=== PATIENT | male | born 1945 | race Caucasian/White ===

== ENCOUNTER 2018-09-02 11:01 | Day surgery (SDC) | payer MEDICARE, BC ==
[2018-09-01 13:34] VITALS: BMI 33.0
[2018-09-02] MEDS ORDERED: Vancomycin HCl 1.5 GM in Sodium Chloride 0.9% 250 ML 300 ML IVPB SCH (11:30)
[2018-09-02] MEDS ORDERED: Fentanyl 100 MCG/2 ML VIAL ONE (13:01)
[2018-09-02] MEDS ORDERED: Midazolam HCl 2 mg/2 ml Vial ONE ×2 (13:02→14:13)
[2018-09-02] MEDS ORDERED: Lidocaine 2% PF 5 ML VIAL ONE (13:07)
[2018-09-02] MEDS ORDERED: Bupivacaine/Epinephrine 0.25% 30 ML VIAL ONE (13:07)
[2018-09-02] MEDS ORDERED: Propofol 500 MG/50 ML VIAL ONE (13:14)
[2018-09-02] MEDS ORDERED: PHENYLEPHRINE-NS 100 MCG/ML 10 ML SYRINGE ONE ×2 (14:12→15:20)
[2018-09-02] MEDS ORDERED: PROPOFOL 20 ML ONE (14:20)
[2018-09-02] MEDS ORDERED: PROPOFOL 200 MG/20 ML VIAL ONE (15:20)
--- NOTE | 2018-09-02 15:56 | RAD ---
CHEST ONE VIEW: 09/02/18 HISTORY: Status post Mediport catheter placement. COMPARISON: None. FINDINGS: Slight elongation of the aorta. Normal cardiac silhouette. The pulmonary vessels and hilum are normal . Costophrenic angles are clear. No consolidation or mass. There is a left sided Mediport catheter wi th distal tip in the expected region of the superior vena cava. No pneumothorax. IMPRESSION: Left sided Mediport catheter without evidence of pneumothorax. POS: [facility]
--- NOTE | 2018-09-03 14:00 | OP ---
DATE OF PROCEDURE: 09/02/2018 PREOPERATIVE DIAGNOSIS: Lymphoma. POSTOPERATIVE DIAGNOSIS: Lymphoma. PROCEDURE: Tunnelled central line with subcutaneous port (MediPort CT injectable), left internal jugular vein. ANESTHESIA: TIVA, local. ESTIMATED BLOOD LOSS: Minimal. COMPLICATION: None. FINDINGS: Tip of the catheter at the atriocaval junction. DESCRIPTION OF PROCEDURE: The patient was taken to the operating room and laid supine on the operating room table. After sedation was obtained, bilateral neck and chest were shaved, prepped, and draped in a sterile fashion. Local anesthetic was infiltrated over the left internal jugular vein. Left internal jugular vein was cannulated using a 22-gauge finder needle followed by a Seldinger needle. Wire was passed under fluoro guidance into superior vena cava. A 3-cm incision was made in the left upper chest and a subcutaneous pocket was made below the lower incision. Tubing for the MediPort tunneled from the inferior to the superior incision and suture sheath was placed over the wire into the superior vena cava under fluoro guidance. The dilator and wire were removed. The end of the catheter was sewed into the sheath. The sheath was peeled away. The end of the catheters was at the atriocaval junction. MediPort tubing cut to fit the MediPort at the lower incision. It was connected to the MediPort and sewn to the chest wall using Prolene. The wound was irrigated. Local anesthetic was applied. The MediPort was able to pull blood and it was flushed with a heparin flush. The wounds were closed using 3-0 Vicryl, 4-0 Monocryl, and Dermabond. The patient was sent to Recovery in stable condition. All instrument counts, needle counts, and lap counts were correct. Job ID: [id number]
--- NOTE | 2018-09-04 20:49 | EKG ---
Test Reason : PREOP Blood Pressure : / mmHG Vent. Rate : 062 BPM Atrial Rate : 062 BPM P-R Int : 200 ms QRS Dur : 088 ms QT Int : 394 ms P-R-T Axes : 049 -13 034 degrees QTc Int : 399 ms Normal sinus rhythm Low voltage QRS Borderline ECG When compared with ECG of 01-FEB-1997 12:17, No significant change was found Confirmed by Herminia MUÑOZ ([id number]) on 09/04/2018 8:48:50 PM Referred By: LEONOR Confirmed By:Herminia MUÑOZ
== END 2018-09-02 16:56 | disposition home or self-care (01) ==
LOC: SDC 11:01
PROVIDERS: ATTEND Surgery
PROC: 02HV33Z Insertion of Infusion Device into Superior Vena Cava, Percutaneous Approach (ICD-10-PCS; principal; 2018-09-02)
DX: C82.90 Follicular lymphoma, unspecified, unspecified site (principal); M19.90 Unspecified osteoarthritis, unspecified site; I10 Essential (primary) hypertension; Z79.899 Other long term (current) drug therapy
CPT/HCPCS: 36561; 71045; 93005; C1788; 93010; J1642; J2001; J2250; J2704; J3010; J3370; J7050

== ENCOUNTER 2021-09-03 09:48 | Outpatient (CLI) | payer MEDICARE, BC ==
[2021-09-03 11:19] LABS: #Eosinphils 0.1 10x3/uL (0.0-0.5); #Monocytes 0.6 10x3/uL (0.0-1.1); #Neutrophils 3.4 10x3/uL (1.5-8.4); %Basophils 0.6 % (0.0-2.0); %Eosinophils 2.8 % (0.0-6.0); %Lymphocytes 18.4 % (18.0-47.0); %Monocytes 11.1 % (0.0-10.0); %Neutrophils 66.7 % (40.0-75.0); Hemoglobin 13.5 g/dL (13.5-17.5); Mean Corpuscular HGB CONC 33.3 g/dL (32.0-36.0); Mean Corpuscular Hemoglobin 31.9 pg (27.0-33.0); Platelet Count 141 10x3/uL (150-450); RBC Distribution Width 13.1 % (11.5-14.5); Red Blood Cell (RBC) Count 4.23 10x6/uL (4.32-5.72); White Blood Cell (WBC) Count 5.1 10x3/uL (3.5-10.5)
[2021-09-03 12:02] LABS: Anion Gap 12 mmol/L (10-20); BUN (Urea Nitrogen) 16 mg/dL (8.4-25.7); Calc. Creatinine Clearance 0 mL/min (70-130); Calcium 8.9 mg/dL (7.8-10.44); Carbon Dioxide 27 mmol/L (23-31); Chloride 106 mmol/L (98-107); Glucose 85 mg/dL (83-110); Sodium 141 mmol/L (136-145)
[2021-09-04 08:56] LABS: SARS-CoV-2 PCR by NAA Not Detected (NotDetected)
== END 2021-09-03 09:49 | disposition home or self-care (01) ==
LOC: LABBT 09:48
PROVIDERS: ATTEND Surgery
DX: Z01.818 Encounter for other preprocedural examination (principal); K42.9 Umbilical hernia without obstruction or gangrene; Z20.822 Contact with and (suspected) exposure to COVID-19
CPT/HCPCS: 80048; 85025; 93005; U0003; U0005; 93010

== ENCOUNTER 2021-09-06 08:20 | Day surgery (SDC) | payer MEDICARE, BC ==
[2021-08-29 15:06] VITALS: BMI 31.5
[2021-09-06] MEDS ORDERED: EPINEPHrine 1 MG/ML AMP ONE (10:38)
[2021-09-06] MEDS ORDERED: Bupivacaine PF 0.5% 30 ML VIAL ONE (10:38)
[2021-09-06] MEDS ORDERED: Fentanyl 100 MCG/2 ML VIAL ONE (10:41)
[2021-09-06] MEDS ORDERED: Bupivacaine 0.25% HCL 30 ML VIAL ONE (10:48)
[2021-09-06] MEDS ORDERED: ceFAZolin 2 GM/Dextrose 50 ML IVPB ONE (11:00)
[2021-09-06] MEDS ORDERED: Lidocaine 1% PF 5 ML VIAL ONE (11:16)
[2021-09-06] MEDS ORDERED: Ondansetron PF 4 MG/2 ML Vial ONE (11:16)
[2021-09-06] MEDS ORDERED: PROPOFOL 200 MG/20 ML VIAL ONE (11:16)
[2021-09-06] MEDS ORDERED: Sodium Chloride 0.9% 10 ML ONE (11:18)
[2021-09-06] MEDS ORDERED: HYDROcodone/Acetaminophen 5/325 mg Tablet ONE (13:31)
== END 2021-09-06 13:44 | disposition home or self-care (01) ==
LOC: SDC 08:20
PROVIDERS: ATTEND Surgery
PROC: 0WUF0JZ Supplement Abdominal Wall with Synthetic Substitute, Open Approach (ICD-10-PCS; principal; 2021-09-06)
DX: K42.9 Umbilical hernia without obstruction or gangrene (principal); I10 Essential (primary) hypertension; M19.011 Primary osteoarthritis, right shoulder; M19.012 Primary osteoarthritis, left shoulder; Z79.2 Long term (current) use of antibiotics; Z79.899 Other long term (current) drug therapy
CPT/HCPCS: C1889; J0171; J0690; J1642; J2405; J2704; J3010; S0020

== ENCOUNTER 2022-09-09 12:13 | Outpatient (CLI) | payer MEDICARE, BC | END 2022-09-09 12:14 | disposition home or self-care (01) | LOC: TBSIIMAG 12:13 | PROVIDERS: ATTEND Anesthesiology Pain Medicine | DX: M47.24 Other spondylosis with radiculopathy, thoracic region (principal); M51.14 Intervertebral disc disorders with radiculopathy, thoracic region | CPT/HCPCS: 72146 ==

== ENCOUNTER 2023-06-19 11:06 | Outpatient (CLI) | payer MEDICARE, BC ==
[2023-06-19 13:15] LABS: #Eosinphils 0.3 10x3/uL (0.0-0.5); #Monocytes 0.4 10x3/uL (0.0-1.1); #Neutrophils 2.9 10x3/uL (1.5-8.4); %Basophils 0.7 % (0.0-2.0); %Eosinophils 5.6 % (0.0-6.0); %Lymphocytes 21.5 % (18.0-47.0); %Monocytes 8.3 % (0.0-10.0); %Neutrophils 63.7 % (40.0-75.0); Hematocrit 35.6 % (38.8-50.0); Hemoglobin 11.6 g/dL (13.5-17.5); Mean Corpuscular HGB CONC 32.6 g/dL (32.0-36.0); Mean Corpuscular Hemoglobin 30.6 pg (27.0-33.0); Mean Corpuscular Volume 93.9 fl (81.2-95.1); Mean Platelet Volume 9.3 fl (7.4-10.4); Platelet Count 189 10x3/uL (150-450); RBC Distribution Width 14.1 % (11.5-14.5); Red Blood Cell (RBC) Count 3.79 10x6/uL (4.32-5.72); White Blood Cell (WBC) Count 4.5 10x3/uL (3.5-10.5)
[2023-06-19 13:34] LABS: Anion Gap 14 mmol/L (10-20); BUN (Urea Nitrogen) 13 mg/dL (8.4-25.7); Calc. Creatinine Clearance 0 mL/min (70-130); Calcium 8.8 mg/dL (7.8-10.44); Carbon Dioxide 26 mmol/L (23-31); Chloride 107 mmol/L (98-107); Estimated GFR 60; Glucose 94 mg/dL (83-110); Sodium 143 mmol/L (136-145)
[2023-06-19 16:51] LABS: Hemoglobin A1c 5.3 % (4.0-6.0)
== END 2023-06-19 11:07 | disposition home or self-care (01) ==
LOC: LABBT 11:06
PROVIDERS: ATTEND Surgery
DX: Z01.818 Encounter for other preprocedural examination (principal); C18.9 Malignant neoplasm of colon, unspecified
CPT/HCPCS: 80048; 83036; 85025; 93005; 93010

== ENCOUNTER 2023-06-19 11:30 | Inpatient (IN) | payer MEDICARE, BC ==
[2023-06-19 11:58] VITALS: BMI 30.1
[2023-06-25] MEDS ORDERED: Bupivacaine 0.25% HCL 30 ML VIAL ONE (08:55)
[2023-06-25] MEDS ORDERED: EPINEPHrine 1 MG/ML VIAL ONE (08:55)
[2023-06-25] MEDS ORDERED: fentaNYL 50 mcg/mL 1 mL Vial ONE ×2 (08:55→14:51)
[2023-06-25] MEDS ORDERED: Midazolam HCl 2 mg/2 ml Vial ONE (08:55)
[2023-06-25] MEDS ORDERED: Lidocaine 1% (PF) 30 ML VIAL ONE (08:56)
[2023-06-25] MEDS ORDERED: Dexmedetomidine 200 MCG/2 ML VIAL ONE (08:57)
[2023-06-25] MEDS ORDERED: fentaNYL PF 100 MCG/2 ML SYRINGE ONE (10:58)
[2023-06-25] MEDS ORDERED: SUGAMMADEX SODIUM 200 MG/2 ML VIAL ONE (10:58)
[2023-06-25] MEDS ORDERED: Sodium Chloride 0.9% 100 ML ONE (11:01)
[2023-06-25] MEDS ORDERED: cefOXitin 2 GM VIAL ONE (11:01)
[2023-06-25] MEDS ORDERED: PROPOFOL 200 MG/20 ML VIAL ONE (11:14)
[2023-06-25] MEDS ORDERED: Ondansetron PF 4 MG/2 ML Vial ONE (11:14)
[2023-06-25] MEDS ORDERED: Dexamethasone 20 MG/5 ML VIAL ONE (11:14)
[2023-06-25] MEDS ORDERED: Rocuronium Bromide 10 MG/ML (10ML VIAL) ONE (11:14)
[2023-06-25] MEDS ORDERED: ePHEDrine Sulfate 50 MG/10 ML VIAL ONE (11:14)
[2023-06-25] MEDS ORDERED: Lidocaine 1% PF 5 ML VIAL ONE (11:14)
[2023-06-25] MEDS ORDERED: PHENYLEPHRINE-NS 100 MCG/ML 10 ML SYRINGE ONE (11:14)
[2023-06-25] MEDS ORDERED: Ondansetron HCl/PF 4 MG/2 ML Vial IVP PRN (14:02)
[2023-06-25] MEDS ORDERED: Promethazine HCl 25 MG/ML VIAL IM PRN ×2 (14:02→15:57)
[2023-06-25] MEDS ORDERED: Ondansetron PF 4 MG/2 ML Vial IVP PRN (15:57)
[2023-06-25] MEDS ORDERED: hydrALAZINE 20 MG/ML VIAL SLOW IVP PRN (15:57)
[2023-06-25] MEDS ORDERED: Ipratropium/Albuterol 3 ML NEB NEB PRN (15:57)
[2023-06-25] MEDS: D5 1/2 NS w/20 mEq KCL 1,000 ML IV SCH (16:27)
[2023-06-25] MEDS: HYDROcodone/Acetaminophen 7.5/325 mg Tablet PO PRN (16:44)
[2023-06-25] MEDS: Famotidine/PF 20 mg/2ml Vial SLOW IVP SCH (19:51)
[2023-06-25] MEDS: Fentanyl 100 MCG/2 ML VIAL SLOW IVP PRN (19:52)
[2023-06-25] MEDS: cefOXitin 2 GM in Sodium Chloride 0.9% 100 ML IVPB SCH (19:52)
[2023-06-25] MEDS: Amlodipine 5 MG TAB PO SCH (19:52)
[2023-06-25] MEDS: Famotidine 20 MG TAB PO SCH (19:53)
[2023-06-26] MEDS: Fentanyl 100 MCG/2 ML VIAL SLOW IVP PRN (00:51)
[2023-06-26] MEDS: D5 1/2 NS w/20 mEq KCL 1,000 ML IV SCH ×3 (00:54→16:24)
[2023-06-26] MEDS: cefOXitin 2 GM in Sodium Chloride 0.9% 100 ML IVPB SCH (04:30)
[2023-06-26] MEDS: HYDROcodone/Acetaminophen 7.5/325 mg Tablet PO PRN (04:31)
[2023-06-26 05:59] LABS: Anion Gap 10 mmol/L (10-20); BUN (Urea Nitrogen) 10 mg/dL (8.4-25.7); Calc. Creatinine Clearance 53 mL/min (70-130); Calcium 9.1 mg/dL (7.8-10.44); Carbon Dioxide 25 mmol/L (23-31); Chloride 107 mmol/L (98-107); Estimated GFR 47; Glucose 130 mg/dL (83-110); Potassium 3.8 mmol/L (3.5-5.1); Sodium 138 mmol/L (136-145)
[2023-06-26 06:20] LABS: #Monocytes 0.7 thou/uL (0.11-0.59); #Neutrophils 7.3 thou/uL (1.40-6.50); %Lymphocytes 5.6 % (21.0-51.0); %Monocytes 7.8 % (0.0-10.0); %Neutrophils 86.2 % (42.0-75.0); Hematocrit 34.7 % (42.0-52.0); Hemoglobin 11.6 g/dL (14.0-18.0); Mean Corpuscular HGB CONC 33.4 g/dL (32.0-36.0); Mean Corpuscular Hemoglobin 31.5 pg (27.0-31.0); Mean Corpuscular Volume 94.3 fl (78.0-98.0); Mean Platelet Volume 9.3 fL (7.4-10.4); Platelet Count 176 10x3/uL (130-400); Red Blood Cell (RBC) Count 3.68 mill/uL (4.70-6.10); White Blood Cell (WBC) Count 8.5 10x3/uL (4.8-10.8)
[2023-06-26] MEDS: Ondansetron ODT 4 MG TAB SL PRN ×2 (06:50→16:23)
[2023-06-26] MEDS: Famotidine 20 MG TAB PO SCH ×2 (10:06→20:57)
[2023-06-26] MEDS: Famotidine/PF 20 mg/2ml Vial SLOW IVP SCH ×2 (10:07→20:57)
[2023-06-26] MEDS: Amlodipine 5 MG TAB PO SCH (20:56)
[2023-06-27] MEDS: D5 1/2 NS w/20 mEq KCL 1,000 ML IV SCH ×2 (00:10→06:37)
[2023-06-27] MEDS: HYDROcodone/Acetaminophen 7.5/325 mg Tablet PO PRN (00:18)
[2023-06-27] MEDS: Famotidine 20 MG TAB PO SCH (09:59)
[2023-06-27] MEDS: Famotidine/PF 20 mg/2ml Vial SLOW IVP SCH (09:59)
[2023-06-27 13:13] VITALS: BP 151/83; TEMP 98
== END 2023-06-27 13:24 | disposition home or self-care (01) | DRG 330 ==
LOC: SURG A 06-25 07:12 → SURG B 06-25 15:55
PROVIDERS: ADMIT Surgery; ATTEND Surgery
PROC: 0DTK4ZZ Resection of Ascending Colon, Percutaneous Endoscopic Approach (ICD-10-PCS; principal; 2023-06-25)
PROC: 0DB84ZZ Excision of Small Intestine, Percutaneous Endoscopic Approach (ICD-10-PCS; 2023-06-25)
PROC: 8E0W4CZ Robotic Assisted Procedure of Trunk Region, Percutaneous Endoscopic Approach (ICD-10-PCS; 2023-06-25)
DX: C18.2 Malignant neoplasm of ascending colon (principal); C77.9 Secondary and unspecified malignant neoplasm of lymph node, unspecified; I96 Gangrene, not elsewhere classified; I10 Essential (primary) hypertension; M19.90 Unspecified osteoarthritis, unspecified site; Z98.890 Other specified postprocedural states
CPT/HCPCS: 36415; 36416; 80048; 85025; 88309; A4314; J0171; J0694; J1100; J1650; J2001; J2250; J2405; J2704; J3010; J3480; J3490; Q0162; S0020; S0028

== ENCOUNTER 2024-06-13 00:59 | Inpatient (IN) | payer MEDICARE, BC ==
[2024-06-13] MEDS ORDERED: Ondansetron PF 4 MG/2 ML Vial ONE (01:30)
[2024-06-13 02:02] LABS: #Basophils Less than 0.03 10x3/uL (0.0-0.2); %Basophils 0.2 % (0.0-1.0); %Eosinophils 1.6 % (0.0-10.0); %Lymphocytes 1.8 % (21.0-51.0); %Monocytes 6.7 % (0.0-10.0); %Neutrophils 89.2 % (42.0-75.0); Hematocrit 34.7 % (42.0-52.0); Hemoglobin 11.3 g/dL (14.0-18.0); Mean Corpuscular HGB CONC 32.6 g/dL (32.0-36.0); Mean Corpuscular Hemoglobin 31.6 pg (27.0-31.0); Mean Corpuscular Volume 96.9 fL (78.0-98.0); Mean Platelet Volume 10.2 fL (7.4-10.4); Platelet Count 80 10x3/uL (130-400); RBC Distribution Width 13.7 % (11.5-14.5); Red Blood Cell (RBC) Count 3.58 mill/uL (4.70-6.10)
[2024-06-13 02:19] LABS: ALT (SGPT) 148 U/L (8-55); AST (SGOT) 125 U/L (5-34); Albumin 2.8 g/dL (3.4-4.8); Alkaline Phosphatase 419 U/L (40-110); Anion Gap 17 mmol/L (10-20); BUN (Urea Nitrogen) 27 mg/dL (8.4-25.7); Bilirubin, Total 2.6 mg/dL (0.2-1.2); Calc. Creatinine Clearance 0 mL/min (70-130); Calcium 9.3 mg/dL (7.8-10.44); Carbon Dioxide 18 mmol/L (23-31); Chloride 108 mmol/L (98-107); Estimated GFR 67; Globulin 3.7 g/dL (2.4-3.5); Glucose 118 mg/dL (83-110); Lipase 263 U/L (8-78); Potassium 3.6 mmol/L (3.5-5.1); Protein, Total 6.5 g/dL (5.8-8.1); Sodium 139 mmol/L (136-145)
[2024-06-13] MEDS ORDERED: HYDROmorphone 0.5 MG/0.5 ML SYRINGE ONE ×2 (02:22→08:35)
[2024-06-13 02:24] LABS: Troponin I Less than 0.010 ng/mL (< 0.028)
[2024-06-13] MEDS ORDERED: Iopamidol 370 76% 100 ML VIAL ONE (09:00)
[2024-06-13] MEDS ORDERED: Acetaminophen 325 MG TAB PO PRN (10:18)
[2024-06-13] MEDS: Sodium Chloride 0.9% 1,000 ML IV SCH (12:36)
[2024-06-13] MEDS: Morphine 4 MG/ML VIAL SLOW IVP PRN (12:49)
[2024-06-13 13:33] VITALS: BMI 20.4
[2024-06-13] MEDS: HYDROcodone/Acetaminophen 7.5/325 mg Tablet PO PRN (20:35)
[2024-06-13] MEDS: Famotidine 20 MG TAB PO SCH (20:35)
[2024-06-13] MEDS: Amlodipine 5 MG TAB PO SCH (20:35)
[2024-06-14 05:09] LABS: ALT (SGPT) 193 U/L (8-55); AST (SGOT) 170 U/L (5-34); Albumin 2.7 g/dL (3.4-4.8); Alkaline Phosphatase 444 U/L (40-110); Anion Gap 15 mmol/L (10-20); BUN (Urea Nitrogen) 25 mg/dL (8.4-25.7); Bilirubin, Total 2.2 mg/dL (0.2-1.2); Calc. Creatinine Clearance 54 mL/min (70-130); Calcium 9.2 mg/dL (7.8-10.44); Carbon Dioxide 18 mmol/L (23-31); Chloride 110 mmol/L (98-107); Estimated GFR 77; Globulin 3.4 g/dL (2.4-3.5); Glucose 107 mg/dL (83-110); Potassium 4.2 mmol/L (3.5-5.1); Protein, Total 6.1 g/dL (5.8-8.1); Sodium 139 mmol/L (136-145)
[2024-06-14] MEDS: Polyethylene Glycol 3350 17 GM Packet PO SCH (09:13)
[2024-06-14] MEDS: Enoxaparin 40 MG (0.4 mL) SYRINGE SC SCH (09:15)
[2024-06-14] MEDS: FLU (Fluad Triv) TS24-25 (65UP)/MF59C/PF 45 MCG/0.5 ML Syringe IM ONE (10:48)
[2024-06-14 10:50] VITALS: BMI 20.4
[2024-06-14 11:24] LABS: Lactic Acid 1.35 mmol/L (0.5-2.2)
[2024-06-14] MEDS: oxyCODONE 5 MG TAB PO PRN ×2 (14:54→20:17)
[2024-06-14] MEDS: Acetaminophen 500 MG TAB PO SCH (14:54)
[2024-06-14] MEDS: Megestrol Acetate 800 MG/20 ML UDCUP PO SCH (14:54)
[2024-06-14] MEDS: Pancrelipase DR 12,000 1 CAP PO SCH (18:06)
[2024-06-14] MEDS: Morphine 2 MG/ML VIAL SLOW IVP PRN (18:06)
[2024-06-14] MEDS: Senokot S 8.6-50 MG TAB PO SCH (20:18)
[2024-06-14] MEDS ORDERED: Senokot S 8.6-50 MG TAB PO SCH (21:00)
[2024-06-15 04:31] LABS: #Basophils 0.03 10x3/uL (0.0-0.2); %Basophils 0.9 % (0.0-1.0); %Eosinophils 3.5 % (0.0-10.0); %Lymphocytes 3.5 % (21.0-51.0); %Monocytes 7.3 % (0.0-10.0); %Neutrophils 84.5 % (42.0-75.0); Hematocrit 32.8 % (42.0-52.0); Hemoglobin 10.5 g/dL (14.0-18.0); Mean Corpuscular Hemoglobin 31.9 pg (27.0-31.0); Mean Corpuscular Volume 99.7 fL (78.0-98.0); Mean Platelet Volume 9.7 fL (7.4-10.4); Platelet Count 63 10x3/uL (130-400); RBC Distribution Width 13.9 % (11.5-14.5); Red Blood Cell (RBC) Count 3.29 mill/uL (4.70-6.10)
[2024-06-15 04:38] LABS: Anion Gap 15 mmol/L (10-20); BUN (Urea Nitrogen) 23 mg/dL (8.4-25.7); Calc. Creatinine Clearance 52 mL/min (70-130); Calcium 8.8 mg/dL (7.8-10.44); Carbon Dioxide 16 mmol/L (23-31); Chloride 112 mmol/L (98-107); Estimated GFR 74; Glucose 101 mg/dL (83-110); Lipase 256 U/L (8-78); Potassium 4.1 mmol/L (3.5-5.1); Sodium 139 mmol/L (136-145)
[2024-06-15 04:39] LABS: ALT (SGPT) 191 U/L (8-55); AST (SGOT) 154 U/L (5-34); Albumin 2.6 g/dL (3.4-4.8); Alkaline Phosphatase 440 U/L (40-110); Bilirubin, Direct 1.5 mg/dL (0.1-0.3); Bilirubin, Total 2.4 mg/dL (0.2-1.2); Protein, Total 5.7 g/dL (5.8-8.1)
[2024-06-15] MEDS: Ondansetron PF 4 MG/2 ML Vial IVP PRN (05:28)
[2024-06-15] MEDS: Megestrol Acetate 800 MG/20 ML UDCUP PO SCH (09:50)
[2024-06-15] MEDS ORDERED: Lorazepam 2 MG/ML VIAL SLOW IVP SCH (18:15)
[2024-06-15] MEDS: oxyCODONE 5 MG TAB PO SCH (18:55)
[2024-06-16 04:33] LABS: #Basophils Less than 0.03 10x3/uL (0.0-0.2); %Basophils 0.5 % (0.0-1.0); %Eosinophils 1.9 % (0.0-10.0); %Lymphocytes 1.9 % (21.0-51.0); %Monocytes 5.8 % (0.0-10.0); %Neutrophils 89.7 % (42.0-75.0); Hematocrit 30.4 % (42.0-52.0); Mean Corpuscular HGB CONC 32.9 g/dL (32.0-36.0); Mean Corpuscular Hemoglobin 31.6 pg (27.0-31.0); Mean Corpuscular Volume 96.2 fL (78.0-98.0); Mean Platelet Volume 10.3 fL (7.4-10.4); Platelet Count 66 10x3/uL (130-400); RBC Distribution Width 13.7 % (11.5-14.5); Red Blood Cell (RBC) Count 3.16 mill/uL (4.70-6.10)
[2024-06-16 04:45] LABS: Anion Gap 15 mmol/L (10-20); BUN (Urea Nitrogen) 22 mg/dL (8.4-25.7); Calc. Creatinine Clearance 61 mL/min (70-130); Calcium 8.7 mg/dL (7.8-10.44); Carbon Dioxide 19 mmol/L (23-31); Chloride 109 mmol/L (98-107); Estimated GFR 88; Glucose 102 mg/dL (83-110); Potassium 3.4 mmol/L (3.5-5.1); Sodium 140 mmol/L (136-145)
[2024-06-16 04:54] LABS: ALT (SGPT) 167 U/L (8-55); AST (SGOT) 125 U/L (5-34); Albumin 2.4 g/dL (3.4-4.8); Alkaline Phosphatase 426 U/L (40-110); Bilirubin, Direct 1.6 mg/dL (0.1-0.3); Bilirubin, Total 2.3 mg/dL (0.2-1.2); Protein, Total 5.5 g/dL (5.8-8.1)
[2024-06-17 05:00] LABS: #Basophils Less than 0.03 10x3/uL (0.0-0.2); %Basophils 0.5 % (0.0-1.0); %Eosinophils 1.6 % (0.0-10.0); %Lymphocytes 2.3 % (21.0-51.0); %Monocytes 5.5 % (0.0-10.0); %Neutrophils 89.8 % (42.0-75.0); Hematocrit 29.8 % (42.0-52.0); Hemoglobin 10.1 g/dL (14.0-18.0); Mean Corpuscular HGB CONC 33.9 g/dL (32.0-36.0); Mean Corpuscular Hemoglobin 32.2 pg (27.0-31.0); Mean Corpuscular Volume 94.9 fL (78.0-98.0); Mean Platelet Volume 9.9 fL (7.4-10.4); Platelet Count 72 10x3/uL (130-400); RBC Distribution Width 14.2 % (11.5-14.5); Red Blood Cell (RBC) Count 3.14 mill/uL (4.70-6.10)
[2024-06-17 05:12] LABS: Anion Gap 14 mmol/L (10-20); BUN (Urea Nitrogen) 18 mg/dL (8.4-25.7); Calc. Creatinine Clearance 61 mL/min (70-130); Calcium 8.7 mg/dL (7.8-10.44); Carbon Dioxide 18 mmol/L (23-31); Chloride 112 mmol/L (98-107); Estimated GFR 88; Glucose 98 mg/dL (83-110); Potassium 3.4 mmol/L (3.5-5.1); Sodium 141 mmol/L (136-145)
[2024-06-17 05:20] LABS: ALT (SGPT) 165 U/L (8-55); AST (SGOT) 129 U/L (5-34); Albumin 2.5 g/dL (3.4-4.8); Alkaline Phosphatase 453 U/L (40-110); Bilirubin, Direct 2.1 mg/dL (0.1-0.3); Bilirubin, Total 2.8 mg/dL (0.2-1.2); Protein, Total 5.6 g/dL (5.8-8.1)
[2024-06-17 05:36] LABS: T4 6.92 ug/dL (4.87-11.72); Thyroid Stimulating Hormone 0.6566 uIU/mL (0.35-4.94)
[2024-06-18 05:24] LABS: #Basophils Less than 0.03 10x3/uL (0.0-0.2); %Basophils 0.3 % (0.0-1.0); %Eosinophils 1.8 % (0.0-10.0); %Lymphocytes 2.1 % (21.0-51.0); %Monocytes 5.6 % (0.0-10.0); %Neutrophils 89.9 % (42.0-75.0); Hematocrit 28.6 % (42.0-52.0); Hemoglobin 9.7 g/dL (14.0-18.0); Mean Corpuscular HGB CONC 33.9 g/dL (32.0-36.0); Mean Corpuscular Hemoglobin 31.1 pg (27.0-31.0); Mean Corpuscular Volume 91.7 fL (78.0-98.0); Mean Platelet Volume 10.3 fL (7.4-10.4); Platelet Count 77 10x3/uL (130-400); RBC Distribution Width 14.3 % (11.5-14.5); Red Blood Cell (RBC) Count 3.12 mill/uL (4.70-6.10)
[2024-06-18 05:42] LABS: ALT (SGPT) 161 U/L (8-55); AST (SGOT) 131 U/L (5-34); Albumin 2.4 g/dL (3.4-4.8); Alkaline Phosphatase 505 U/L (40-110); Bilirubin, Total 2.8 mg/dL (0.2-1.2); Protein, Total 4.8 g/dL (5.8-8.1)
[2024-06-18 05:56] LABS: Anion Gap 15 mmol/L (10-20); BUN (Urea Nitrogen) 16 mg/dL (8.4-25.7); Calc. Creatinine Clearance 64 mL/min (70-130); Calcium 8.7 mg/dL (7.8-10.44); Carbon Dioxide 16 mmol/L (23-31); Chloride 112 mmol/L (98-107); Estimated GFR 89; Glucose 98 mg/dL (83-110); Potassium 3.3 mmol/L (3.5-5.1); Sodium 140 mmol/L (136-145)
[2024-06-18] MEDS ORDERED: Electrolyte Replacement Protocol 1 EACH FS SCH (08:43)
[2024-06-18] MEDS: Sodium Bicarbonate Tab 325 MG TAB PO SCH (10:25)
[2024-06-18] MEDS: Potassium Chloride 20 MEQ TAB PO SCH (15:13)
[2024-06-19 04:44] LABS: Anion Gap 16 mmol/L (10-20); BUN (Urea Nitrogen) 16 mg/dL (8.4-25.7); Calc. Creatinine Clearance 59 mL/min (70-130); Calcium 9.1 mg/dL (7.8-10.44); Carbon Dioxide 17 mmol/L (23-31); Chloride 110 mmol/L (98-107); Estimated GFR 86; Glucose 100 mg/dL (83-110); Potassium 3.6 mmol/L (3.5-5.1); Sodium 139 mmol/L (136-145)
[2024-06-19 05:26] LABS: #Basophils Less than 0.03 10x3/uL (0.0-0.2); %Basophils 0.4 % (0.0-1.0); %Eosinophils 1.5 % (0.0-10.0); %Lymphocytes 2.3 % (21.0-51.0); %Monocytes 6.1 % (0.0-10.0); %Neutrophils 89.3 % (42.0-75.0); Hematocrit 31.9 % (42.0-52.0); Hemoglobin 10.7 g/dL (14.0-18.0); Mean Corpuscular HGB CONC 33.5 g/dL (32.0-36.0); Mean Corpuscular Hemoglobin 31.9 pg (27.0-31.0); Mean Corpuscular Volume 95.2 fL (78.0-98.0); Mean Platelet Volume 10.1 fL (7.4-10.4); Platelet Count 91 10x3/uL (130-400); RBC Distribution Width 14.7 % (11.5-14.5); Red Blood Cell (RBC) Count 3.35 mill/uL (4.70-6.10)
[2024-06-20 06:34] LABS: #Basophils Less than 0.03 10x3/uL (0.0-0.2); %Basophils 0.3 % (0.0-1.0); %Lymphocytes 2.3 % (21.0-51.0); %Monocytes 6.8 % (0.0-10.0); %Neutrophils 89.1 % (42.0-75.0); Hematocrit 28.6 % (42.0-52.0); Hemoglobin 9.8 g/dL (14.0-18.0); Mean Corpuscular HGB CONC 34.3 g/dL (32.0-36.0); Mean Corpuscular Volume 93.5 fL (78.0-98.0); Platelet Count 94 10x3/uL (130-400); RBC Distribution Width 14.9 % (11.5-14.5); Red Blood Cell (RBC) Count 3.06 mill/uL (4.70-6.10)
[2024-06-20 06:45] LABS: Anion Gap 15 mmol/L (10-20); BUN (Urea Nitrogen) 16 mg/dL (8.4-25.7); Calc. Creatinine Clearance 64 mL/min (70-130); Calcium 8.6 mg/dL (7.8-10.44); Carbon Dioxide 18 mmol/L (23-31); Chloride 109 mmol/L (98-107); Estimated GFR 89; Glucose 101 mg/dL (83-110); Potassium 3.4 mmol/L (3.5-5.1); Sodium 139 mmol/L (136-145)
[2024-06-20] MEDS: Potassium Bicarbonate/Cit Ac 20 MEQ TAB PO SCH (09:41)
[2024-06-21 07:21] LABS: Anion Gap 15 mmol/L (10-20); BUN (Urea Nitrogen) 16 mg/dL (8.4-25.7); Calc. Creatinine Clearance 67 mL/min (70-130); Calcium 8.5 mg/dL (7.8-10.44); Carbon Dioxide 18 mmol/L (23-31); Chloride 109 mmol/L (98-107); Estimated GFR 90; Glucose 101 mg/dL (83-110); Potassium 3.4 mmol/L (3.5-5.1); Sodium 139 mmol/L (136-145)
[2024-06-21 07:56] LABS: #Basophils Less than 0.03 10x3/uL (0.0-0.2); %Basophils 0.3 % (0.0-1.0); %Eosinophils 1.2 % (0.0-10.0); %Lymphocytes 2.3 % (21.0-51.0); %Monocytes 7.8 % (0.0-10.0); %Neutrophils 87.8 % (42.0-75.0); Hematocrit 27.9 % (42.0-52.0); Hemoglobin 9.6 g/dL (14.0-18.0); Mean Corpuscular HGB CONC 34.4 g/dL (32.0-36.0); Mean Platelet Volume 9.2 fL (7.4-10.4); Platelet Count 102 10x3/uL (130-400); RBC Distribution Width 15.4 % (11.5-14.5)
[2024-06-21] MEDS: Potassium Chloride 20 MEQ TAB PO SCH (12:47)
[2024-06-22 05:48] LABS: #Basophils Less than 0.03 10x3/uL (0.0-0.2); %Basophils 0.3 % (0.0-1.0); %Eosinophils 0.9 % (0.0-10.0); %Lymphocytes 2.7 % (21.0-51.0); %Monocytes 8.3 % (0.0-10.0); %Neutrophils 87.2 % (42.0-75.0); Hematocrit 27.2 % (42.0-52.0); Hemoglobin 9.5 g/dL (14.0-18.0); Mean Corpuscular HGB CONC 34.9 g/dL (32.0-36.0); Mean Corpuscular Hemoglobin 32.3 pg (27.0-31.0); Mean Corpuscular Volume 92.5 fL (78.0-98.0); Mean Platelet Volume 10.5 fL (7.4-10.4); Platelet Count 116 10x3/uL (130-400); RBC Distribution Width 15.6 % (11.5-14.5); Red Blood Cell (RBC) Count 2.94 mill/uL (4.70-6.10)
[2024-06-22 06:20] LABS: ALT (SGPT) 152 U/L (8-55); AST (SGOT) 125 U/L (5-34); Albumin 2.2 g/dL (3.4-4.8); Alkaline Phosphatase 544 U/L (40-110); Protein, Total 5.2 g/dL (5.8-8.1)
[2024-06-22 06:23] LABS: Anion Gap 13 mmol/L (10-20); BUN (Urea Nitrogen) 15 mg/dL (8.4-25.7); Calc. Creatinine Clearance 66 mL/min (70-130); Calcium 8.3 mg/dL (7.8-10.44); Carbon Dioxide 17 mmol/L (23-31); Chloride 108 mmol/L (98-107); Estimated GFR 90; Glucose 108 mg/dL (83-110); Potassium 3.2 mmol/L (3.5-5.1); Sodium 135 mmol/L (136-145)
[2024-06-22] MEDS: Potassium Chloride 20 MEQ TAB PO SCH (09:38)
[2024-06-22] MEDS ORDERED: Electrolyte Replacement Protocol FS PRN (11:15)
[2024-06-22 20:03] VITALS: BP 131/91; TEMP 98.4
== END 2024-06-22 20:48 | disposition swing bed (61) | DRG 840 ==
LOC: ERS 00:59 → 2NO 08:53 → OBSVTOIN 06-14 12:35 → MSONC 06-17 18:58
PROVIDERS: ADMIT Internal Medicine; ATTEND Internal Medicine
DX: C77.2 Secondary and unspecified malignant neoplasm of intra-abdominal lymph nodes (principal); I81 Portal vein thrombosis; K72.00 Acute and subacute hepatic failure without coma; K85.90 Acute pancreatitis without necrosis or infection, unspecified; I82.0 Budd-Chiari syndrome; C78.6 Secondary malignant neoplasm of retroperitoneum and peritoneum; C18.9 Malignant neoplasm of colon, unspecified; K86.1 Other chronic pancreatitis; R64 Cachexia; G89.3 Neoplasm related pain (acute) (chronic); I10 Essential (primary) hypertension; K80.20 Calculus of gallbladder without cholecystitis without obstruction; D69.6 Thrombocytopenia, unspecified; R53.81 Other malaise; E86.0 Dehydration; N28.1 Cyst of kidney, acquired; Z79.899 Other long term (current) drug therapy; Z98.890 Other specified postprocedural states; Z90.49 Acquired absence of other specified parts of digestive tract; Z68.20 Body mass index [BMI] 20.0-20.9, adult; Z51.5 Encounter for palliative care
CPT/HCPCS: 36415; 70450; 71045; 74177; 74181; 76376; 80048; 80053; 80076; 83605; 83690; 83735; 84436; 84443; 84484; 85025; 93005; 96372; 96374; 96375; 96376; G0378; J1642; J1650; J2272; J2405; J7030; J9271; Q9967